=== PATIENT | female | born 1945 | race Caucasian/White ===

== ENCOUNTER 2018-11-26 11:45 | Day surgery (SDC) | payer MEDICARE, OTHER, SELFPAY ==
[2018-11-26 12:28] VITALS: BP 149/92; PULSE 66; RESP 16; TEMP 36.5; O2SAT 99; BMI 26.3
--- NOTE | 2018-11-26 13:50 | SOF_PTH ---
PATIENT: REYNALDO FAIRCHILD [place] [facility] [place][id number] AGE/SX: 73/F ROOM: RE11/26/[address]: Dr. Rio Gaytan MD : [id number] BED: DIS: 11/26/2018 SPEC #: [id number] RECD: 11/30/18 09:32 STATUS: YULY REMaximiliano #: [id number] BLAYNE: 11/26/18 13:[address]: Rio Gaytan DEPT: SURGICAL PATHOLOGY RECD BY: Odilon Germain ENTERED: 11/30/18 12:19 SP TYPE: SOFT TISS OTHR DR: Dr. 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 See comment. AM:arianna 12/01/18 COMMENT The findings are consistent with urethral caruncle. Clinical correlation is suggested. MICROSCOPIC DESCRIPTION Slides are reviewed. GROSS DESCRIPTION Received in fixative is one container labeled with the patient's name and designated urethral caruncle. The specimen consists of two irregular fragments of connor soft tissue that in aggregate measure 1.7 x 1.2 x 0.5 cm. The largest fragment is bisected and submitted along with the smaller fragment in one cassette. / AM:arianna 11/30/18 TC:1 CPT: 92336
[2018-11-26] MEDS: Cefazolin 2 GM in 0.9% Normal Saline 100 ML IV (14:31)
--- NOTE | 2018-11-26 14:32 | PCM.DC.URO ---
Discharge Diet: Light diet - advance as tolerated Discharge Activity: Return to Normal Activity, May Not Drive, May Shower Call your doctor if you observe: Fever of 101 or Higher Suture Line Care: Avoid Pulling/Pushing, Avoid Pinching/Bending Catheter: Sweeney to leg bag Drain: [place] Additional Instructions: teach patient catheter retirement with sweeney to leg bag teach the patient to remove catheter on Thursday next we she can come to office if has issues o/w I want to see her for a check up in two weeks. Allergies/Adverse Reactions: Allergies No Known Allergies Allergy (Verified 11/26/18 12:27) Medications to take at Discharge Calcium Carbonate [Calcium] 600 mg PO DAILY 11/19/18 Cholecalciferol (VIT D3) [Vitamin D3] 1,000 unit PO DAILY 11/19/18 Lisinopril/Hydrochlorothiazide [Lisinopril-Hctz 10-12.5 mg Tab] 1 each PO DAILY 11/19/18 Vitamin B Complex 1 each PO DAILY 11/19/18 Primary Care Physician: Mikal Rojas MD [Primary Care Provider] - Test Results: Test results from this visit will be discussed in further detail at your follow-up appointment, if applicable. Please Follow Up With: Rio Gaytan MD When: Remove catheter next week, follow up in office in a few weeks
--- NOTE | 2018-11-26 14:35 | DCINST_ITS ---
Discharge Diet: Light diet - advance as tolerated Discharge Activity: Return to Normal Activity, May Not Drive, May Shower Call your doctor if you observe: Fever of 101 or Higher Suture Line Care: Avoid Pulling/Pushing, Avoid Pinching/Bending Catheter: Sweeney to leg bag Drain: [place] Additional Instructions: teach patient catheter skilled nursing with sweeney to leg bag teach the patient to remove catheter on Thursday next we she can come to office if has issues o/w I want to see her for a check up in two weeks. Allergies/Adverse Reactions: Allergies No Known Allergies Allergy (Verified 11/26/18 12:27) Medications to take at Discharge Calcium Carbonate [Calcium] 600 mg PO DAILY 11/19/18 Cholecalciferol (VIT D3) [Vitamin D3] 1,000 unit PO DAILY 11/19/18 Lisinopril/Hydrochlorothiazide [Lisinopril-Hctz 10-12.5 mg Tab] 1 each PO DAILY 11/19/18 Vitamin B Complex 1 each PO DAILY 11/19/18 Primary Care Physician: Mikal Rojas MD [Primary Care Provider] - Test Results: Test results from this visit will be discussed in further detail at your follow- up appointment, if applicable. Please Follow Up With: Rio Gaytan MD When: Remove catheter next week, follow up in office in a few weeks
--- NOTE | 2018-11-26 15:02 | PCM.OPRPT ---
Report of Operation Date of Procedure: 11/26/18 Pre-Operative Diagnosis: Large urethral caruncle Post-Operative Diagnosis: Same Surgery/Procedure Performed:: Cystoscopy and excision of urethral caruncle Description of Surgical Findings:: 73-year-old female with a very large urethral carbuncle had gone down in size with estrogen was still was fairly present fairly firm mass are recommended we do an excision make sure there is no malignancy and also to prevent recurrence. 73-year-old female taken back to the operating room at the smooth induction of general anesthesia she was placed in dorsolithotomy position I first performed a flexible cystoscopy the entire length the urethra was normal the bladder was normal she had some mild trabeculation within the bladder trigone was normal left and right ureteral orifice normal no tumors or stones were seen within the bladder. I then looked at the caruncle she had a large protruding caruncle both in the anterior and posterior part of the urethra I used forceps to gently retract the caruncle out and then used scissors to excise the excess caruncle tissue circumferentially from the urethra I then used a 5-0 chromic and a 4-0 chromic to reconstruct the urethra place and stitches circumferentially around approximating the edge of the urethra to the edge of the mucosa all the way around around the catheter 18 Khmer catheter was left and her bladder. She will go home with a catheter she will be given antibiotics and pain medicine she will be given instructions how to remove the catheter she will take out the catheter next week and see him in follow-up in a few weeks to review the results of the pathology and the results of surgery. Type of Anesthesia:: General Specimen's removed: caruncle - Admit VTE Documentation VTE Present on Admission: No VTE Mechan Device Prophylaxis: SCD's
[2018-11-26 15:13] VITALS: BP 111/69; BP 149/92; PULSE 71; RESP 16; TEMP 36.2; O2SAT 94
[2018-11-26 15:15] VITALS: BP 107/59; BP 149/92; PULSE 68; RESP 16; O2SAT 95
[2018-11-26 15:30] VITALS: BP 124/66; BP 149/92; PULSE 62; RESP 16; O2SAT 99
[2018-11-26 15:44] VITALS: BP 138/81; BP 149/92; PULSE 62; RESP 16; TEMP 36.2; O2SAT 100
[2018-11-26 16:40] VITALS: BP 149/92
== END 2018-11-26 16:55 | disposition home or self-care (01) ==
LOC: SDC 11:49 → AC 11:51
PROVIDERS: Family Provider Family Medicine; PCP Family Medicine; Referring Provider Urology; Visit Provider Urology
PROC: (CPT 53265; principal; 2018-11-26 13:40)
DX: N36.2 Urethral caruncle (principal); I10 Essential (primary) hypertension; Z79.899 Other long term (current) drug therapy; Z79.82 Long term (current) use of aspirin
CPT/HCPCS: 00942; 53265; 88305; J7120; A4216; J2405

== ENCOUNTER → 2020-12-18 | Outpatient (CLI) | payer MEDICARE, OTHER, SELFPAY | END | disposition home or self-care (01) | LOC: LABSPEC 15:46 | PROVIDERS: PCP Family Medicine; Visit Provider Nurse Practitioner Adult Health | DX: N39.0 Urinary tract infection, site not specified (principal) | CPT/HCPCS: 87077; 87086; 87088; 87186 ==

== ENCOUNTER 2024-09-01 09:32 | Outpatient (CLI) | payer MEDICARE, OTHER, SELFPAY ==
[2024-09-01 09:49] VITALS: BP 116/60; PULSE 69; RESP 16; TEMP 36.5; O2SAT 98; BMI 25.7
[2024-09-01 10:42] VITALS: BP 121/64; PULSE 63; RESP 16; TEMP 35.9; O2SAT 97
[2024-09-01 11:42] VITALS: BP 118/71; PULSE 64; RESP 16; TEMP 35.8; O2SAT 97
[2024-09-01 12:42] VITALS: BP 139/70; PULSE 72; RESP 14; TEMP 36.2; O2SAT 96
== END 2024-09-01 23:59 | disposition home or self-care (01) ==
PROVIDERS: PCP Family Medicine; Referring Provider Internal Medicine Hematology & Oncology; Visit Provider Internal Medicine Hematology & Oncology
DX: D46.20 Refractory anemia with excess of blasts, unspecified (principal)
CPT/HCPCS: 36430; 86850; 86900; 86901; P9016; A4216

== ENCOUNTER 2024-09-30 09:43 | Outpatient (CLI) | payer MEDICARE, OTHER, SELFPAY ==
[2024-09-30 10:04] VITALS: BP 169/75; PULSE 91; RESP 16; TEMP 36.4; O2SAT 96; BMI 25.7
[2024-09-30 10:33] VITALS: BP 139/57; PULSE 68; RESP 14; TEMP 36.7; O2SAT 96
[2024-09-30 11:29] VITALS: BP 151/60; PULSE 55; RESP 16; TEMP 36.4; O2SAT 97
[2024-09-30 12:30] VITALS: BP 147/70; PULSE 56; RESP 16; TEMP 36.4; O2SAT 96
== END 2024-09-30 23:59 | disposition home or self-care (01) ==
LOC: MEDOUTP 09:43
PROVIDERS: PCP Family Medicine; Referring Provider Internal Medicine Hematology & Oncology; Visit Provider Internal Medicine Hematology & Oncology
DX: D46.20 Refractory anemia with excess of blasts, unspecified (principal)
CPT/HCPCS: 36430; 86850; 86900; 86901; P9016; A4216

== ENCOUNTER 2025-02-09 11:10 | Outpatient (CLI) | payer MEDICARE, OTHER, SELFPAY ==
[2025-02-09 11:34] VITALS: BP 130/54; PULSE 63; RESP 16; TEMP 35.9; O2SAT 96; BMI 25.3
[2025-02-09 12:09] VITALS: BP 99/53; PULSE 62; RESP 16; TEMP 36.1; O2SAT 99
[2025-02-09 13:09] VITALS: BP 115/44; PULSE 55; RESP 16; TEMP 36; O2SAT 98
[2025-02-09 14:03] VITALS: BP 116/54; PULSE 55; RESP 16; TEMP 36.1; O2SAT 99
== END 2025-02-09 23:59 | disposition home or self-care (01) ==
LOC: MEDOUTP 11:10
PROVIDERS: PCP Family Medicine; Referring Provider Internal Medicine Hematology & Oncology; Visit Provider Internal Medicine Hematology & Oncology
DX: D46.20 Refractory anemia with excess of blasts, unspecified (principal)
CPT/HCPCS: 36430; 86644; 86850; 86900; 86901; P9016; A4216